=== PATIENT | male | born 1965 | race Caucasian/White ===

== ENCOUNTER 2019-04-13 08:45 | Emergency (ER) | payer OTHER ==
[2019-04-13 09:24] VITALS: BP 102/69
[2019-04-13] MEDS ORDERED: Albuterol 2.5 MG/3 ML NEB.SOL* (0.083%) INH ONE (09:45)
--- NOTE | 2019-04-13 09:46 | UC ---
UC General HPI - HPI Summary HPI Summary: per triage, Pt feels like a dish rag. Pt is coughing, difficulty breathing, chills, congesotion, headache, and nausea. Pt states symptoms present for 3 days. [ End ] Pt had diarrhea this am. hx pneumonia and this feels the same. no asthma or copd. no cp. + smoker. tx with tylenol, motrin and Coricidin. - History of Current Complaint Chief Complaint: UCGeneralIllness Stated Complaint: CHI,COUGH,DIFF BREATHING Time Seen by Provider: 04/13/19 09:39 Hx Obtained From: Patient Onset/Duration: Gradual Onset Timing: Constant Pain Intensity: 2 Associated Signs & Symptoms: Positive: Diarrhea - x1 this am, Vomiting - from the cough - Allergy/Home Medications Allergies/Adverse Reactions: Allergies Allergy/AdvReac Type Severity Reaction Status Date / Time morphine Allergy Rash Verified 04/13/19 09:24 PMH/Surg Hx/FS Hx/Imm Hx Cardiovascular History: Hypertension Respiratory History: Pneumonia - Surgical History Surgical History: Yes Surgery Procedure, Year, and Place: Cervical disc replacement, AC joint left shoulder repair, Ulnar nerve surgery right elbow, carpal tunnel surgery right wrist, appendectomy. SPINAL FUSION L2-L4 - Family History Known Family History: Positive: Non-Contributory - Social History Alcohol Use: Rare Substance Use Type: None Smoking Status (MU): Light Every Day Tobacco Smoker Type: Cigarettes Amount Used/How Often: 1/2PPD Have You Smoked in the Last Year: Yes Household Exposure Type: Cigarettes - Immunization History Most Recent Influenza Vaccination: NOT THIS SEASON Review of Systems All Other Systems Reviewed And Are Negative: Yes Constitutional: Positive: Fever, Chills, Fatigue Respiratory: Positive: Shortness Of Breath, Cough Cardiovascular: Negative: Palpitations, Chest Pain Gastrointestinal: Positive: Vomiting, Diarrhea, Nausea Neurological: Positive: Headache Physical Exam Triage Information Reviewed: Yes Appearance: Well-Appearing Vital Signs: Initial Vital Signs Temp 97.5 F 04/13/19 09:19 Pulse 75 04/13/19 09:19 Resp 16 04/13/19 09:19 BP 102/69 04/13/19 09:19 Pulse Ox 98 04/13/19 09:19 Vital Signs Reviewed: Yes Eyes: Positive: Conjunctiva Clear ENT: Positive: Pharynx normal. Negative: Nasal drainage Neck: Positive: Supple, Nontender, No Lymphadenopathy Respiratory: Positive: No respiratory distress, Decreased breath sounds, Crackles - R, Wheezing - R, Other: - cough is congested Cardiovascular: Positive: RRR, No Murmur Abdomen Description: Positive: Nontender, No Organomegaly, Soft Bowel Sounds: Positive: Present Musculoskeletal: Positive: ROM Intact Neurological: Positive: Alert Psychological: Positive: Age Appropriate Behavior Skin Exam: Normal Diagnostics - Radiology No standard instances Radiology Interpretation Completed By: Radiologist - NO ACTIVE CARDIOPULMONARY DISEASE. Re-Evaluation - Re-Evaluation First Eval Re-Evaluation Time: 10:47 Change: Improved - wheezing resolved. aeration remained decreased. Course/Dx - Differential Dx - Multi-Symptom Differential Diagnoses: Other - non toxic. not hypoxic. cxr=nad; however, focal findings on lung exam with prior hx pneumonia with similar s/s's thus I am going to tx for presumtive pneumpnia. - Diagnoses Provider Diagnosis: Pneumonia Discharge - Sign-Out/Discharge Documenting (check all that apply): Patient Departure All imaging exams completed and their final reports reviewed: Yes - Discharge Plan Condition: Stable Disposition: HOME Prescriptions: Albuterol HFA INHALER* [Ventolin HFA Inhaler*] 2 puff INH Q6H #1 mdi DOXYcycline CAP(*) [DOXYcycline 100MG CAP(*)] 100 mg PO BID 10 Days #20 cap predniSONE [Prednisone 20 MG TAB] 40 mg PO DAILY 5 Days #10 tablet Patient Education Materials: Community Acquired Pneumonia (DC) Referrals: Len Castro MD [Primary Care Provider] - 7 Days Additional Instructions: GO TO ER FOR ANY WORSENING - Billing Disposition and Condition Condition: STABLE Disposition: Home
== END 2019-04-13 11:00 | disposition home or self-care (01) ==
LOC: UCCORT 08:45
DX: J18.9 Pneumonia, unspecified organism (principal); I10 Essential (primary) hypertension; F17.210 Nicotine dependence, cigarettes, uncomplicated
CPT/HCPCS: 71046; 99212; G0463